=== PATIENT | female | born 1995 | race Caucasian/White ===

== ENCOUNTER 2019-07-14 00:46 | Emergency (ER) | payer BC, MEDICAID ==
[~2019-07-14] VITALS: Ht 167.6 cm; Wt 59.0 kg
[2019-07-14] MEDS ORDERED: NALOXONE HCL 1 MG/ML 2ML VIAL ONE (00:52)
[2019-07-14] MEDS ORDERED: ONDANSETRON HCL 4MG/2ML INJ IV STA (00:53)
[2019-07-14] MEDS ORDERED: SODIUM CHLORIDE 0.9% 1,000 ML IV ONE (00:53)
[2019-07-14] MEDS ORDERED: NALOXONE HCL 1 MG/ML 2ML VIAL IM ONE (01:00)
[2019-07-14] MEDS ORDERED: NALOXONE HCL 1 MG/ML 2ML VIAL IV ONE (01:00)
[2019-07-14 01:49] LABS: BASOPHILS % 0.4 % (0.0-2.0); EOSINOPHILS % 0.1 % (0.0-5.0); HEMATOCRIT. 40.4 % (36.0-48.0); HEMOGLOBIN. 13.5 g/dL (12.0-16.0); MEAN CORPUSCULAR HEMOGLOBIN 30.4 pg (28.0-32.0); MEAN CORPUSCULAR VOLUME 91.4 fL (81.0-99.0); MEAN PLATELET VOLUME 8.3 fl (7.4-10.4); MONOCYTES % 6.7 % (2.0-8.0); NEUTROPHILS % 67.8 % (40.0-76.0); PLATELET 289 x1000/uL (130-400); RED BLOOD CELL COUNT 4.43 mill/uL (4.2-5.4); RED CELL DISTRIBUTION WIDTH 13.8 % (11.6-14.6)
[2019-07-14 01:51] LABS: CHLORIDE 117 mEq/L (98-107)
[2019-07-14 01:55] LABS: ETHANOL BLOOD 124 mg/dL
[2019-07-14 02:21] LABS: *AMPHETAMINES SCREEN URINE NEGATIVE (NEGATIVE)
[2019-07-14 02:22] LABS: *BENZODIAZEPINES SCREEN URINE NEGATIVE (NEGATIVE); *COCAINE SCREEN URINE NEGATIVE (NEGATIVE); CANNABINOID URINE SCREEN NEGATIVE (NEGATIVE); METHADONE URINE SCREEN NEGATIVE (NEGATIVE); PHENCYCLIDINE URINE SCREEN NEGATIVE (NEGATIVE)
[2019-07-14 02:28] LABS: *BARBITURATES SCREEN URINE PRESUMTIVE POSITIVE (NEGATIVE); OPIATES URINE SCREEN PRESUMTIVE POSITIVE (NEGATIVE)
[2019-07-14 05:30] VITALS: BP 81/46
[2019-07-14] MEDS ORDERED: AZITHROMYCIN 500 MG TABLET PO ONE (06:00)
[2019-07-14] MEDS ORDERED: CEFTRIAXONE SODIUM 250 MG/VIAL IM ONE (06:00)
== END 2019-07-14 07:23 | disposition home or self-care (01) ==
LOC: ER 00:46 → EDBD 00:46 → ER 07:23
DX: T42.3X1A Poisoning by barbiturates, accidental (unintentional), initial encounter (principal); T40.601A Poisoning by unspecified narcotics, accidental (unintentional), initial encounter; T43.641A Poisoning by ecstasy, accidental (unintentional), initial encounter; R40.4 Transient alteration of awareness; R00.0 Tachycardia, unspecified; M25.572 Pain in left ankle and joints of left foot; R73.9 Hyperglycemia, unspecified; D72.829 Elevated white blood cell count, unspecified; E87.8 Other disorders of electrolyte and fluid balance, not elsewhere classified; Y92.9 Unspecified place or not applicable
CPT/HCPCS: 36415; 70450; 71045; 73610; 80053; 80305; 80320; 81025; 85025; 93005; 96372; 96374; 96375; 99284; J0696; J2310; J2405; J7030; Z7610; G0480